=== PATIENT | female | born 1940 | race Caucasian/White ===

== ENCOUNTER 2016-08-24 17:16 | Outpatient (CLI) | payer OTHER | END 2016-08-24 20:44 | disposition home or self-care (01) | LOC: SRD 17:16 | PROVIDERS: ATTEND Family Medicine | DX: R05 Cough (principal); M47.892 Other spondylosis, cervical region; M41.82 Other forms of scoliosis, cervical region | CPT/HCPCS: 71020-TC ==

== ENCOUNTER 2017-06-25 09:57 | Emergency (ER) | payer OTHER ==
[~2017-06-25] VITALS: Ht 162.6 cm; Wt 65.8 kg
[2017-06-25 10:00] VITALS: BP_SYST 162
[2017-06-25] MEDS ORDERED: fentaNYL CITRATE/PF 100 MCG/2 ML AMP IVP ONE (10:15)
[2017-06-25] MEDS ORDERED: IPRATROPIUM BROM 0.5 MG/2.5 ML VIAL.NEB (ATROVENT) IH ONE ×2 (10:15)
[2017-06-25] MEDS ORDERED: CLOPIDOGREL BISULFATE 75 MG TABLET PO ONE (10:15)
[2017-06-25] MEDS ORDERED: ALBUTEROL SULFATE 0.083% 2.5 MG/3 ML VIAL.NEB IH ONE ×2 (10:15)
[2017-06-25] MEDS ORDERED: methylPREDNISolone SOD SUCC/PF 62.5 MG/ML VIAL IVP ONE (10:15)
[2017-06-25 10:30] VITALS: BP_SYST 139
[2017-06-25 10:38] LABS: BASOPHILS % (AUTO) 0.3 % (0.0-2.0); HEMATOCRIT 36.7 % (36-48); HEMOGLOBIN 12.4 g/dL (12.0-16.0); LYMPHOCYTES # (AUTO) 0.3 K/uL (1.0-5.5); LYMPHOCYTES % (AUTO) 8.6 % (20.5-51.5); MEAN CORPUSCULAR HEMOGLOBIN 32 pg (27-31); MEAN CORPUSCULAR HGB CONC 34 % (32-36); MEAN CORPUSCULAR VOLUME 94 fL (79.0-98.0); MONOCYTES # (AUTO) 0.1 K/uL (0.0-1.0); MONOCYTES % (AUTO) 1.8 % (1.7-9.3); NEUTROPHILS # (AUTO) 3.1 K/uL (1.8-7.7); NEUTROPHILS % (AUTO) 89.3 % (40.0-70.0); PLATELET COUNT (AUTO) 272 K/uL (130-430); RED BLOOD CELL COUNT(AUTO) 3.92 MIL/uL (4.2-6.2); RED CELL DISTRIBUTION WIDTH 14.9 % (9.0-15.0); WHITE BLOOD COUNT (AUTO) 3.5 K/uL (4.8-10.8)
[2017-06-25 10:42] LABS: ANION GAP 12 (5-15); CALCIUM 9.4 mg/dL (8.4-11.0); CHLORIDE 101 mmol/L (98-107); CREATININE 0.97 mg/dL (0.55-1.30); GLUCOSE 123 mg/dL (70-99); POTASSIUM 3.6 mmol/L (3.5-5.1); SODIUM SERUM 136 mmol/L (136-145); UREA NITROGEN, BLOOD 20 mg/dL (8-21)
[2017-06-25 10:43] LABS: PROTHROMBIN TIME 9.7 SECS (9.5-12.5)
[2017-06-25 10:56] LABS: ALANINE AMINOTRANSFERASE 23 U/L (12-78); ALBUMIN 2.9 g/dL (3.4-4.8); AMYLASE 14 U/L (0-100); ASPARTATE AMINOTRANSFERASE 41 U/L (10-37); LIPASE 50 U/L (73-393); TOTAL BILIRUBIN 0.5 mg/dL (0.0-1.0)
== END 2017-06-25 10:30 | disposition short-term general hospital (02) ==
LOC: SED 09:57
DX: J44.1 Chronic obstructive pulmonary disease with (acute) exacerbation (principal); I11.0 Hypertensive heart disease with heart failure; I50.9 Heart failure, unspecified; I25.10 Atherosclerotic heart disease of native coronary artery without angina pectoris; I48.91 Unspecified atrial fibrillation; Z88.6 Allergy status to analgesic agent; M19.90 Unspecified osteoarthritis, unspecified site; Z88.0 Allergy status to penicillin
CPT/HCPCS: 36415; 71045; 80053; 82150; 82550; 83605; 83690; 83880; 84484; 85025; 85610; 85730; 87040; 93005; 96374; 96375; 99285; J2930; J3010; 94640

== ENCOUNTER 2017-11-14 09:53 | Inpatient (IN) | payer OTHER ==
[~2017-11-14] VITALS: Ht 157.5 cm; Wt 58.1 kg
[2017-11-14 10:13] VITALS: BP_SYST 104
[2017-11-14] MEDS ORDERED: NACL 0.9% 1,000 ML IV ONE (10:15)
[2017-11-14 10:37] LABS: BASOPHILS % (AUTO) 0.9 % (0.0-2.0); EOSINOPHILS # (AUTO) 0.1 K/uL (0.0-0.4); LYMPHOCYTES # (AUTO) 0.8 K/uL (1.0-5.5); LYMPHOCYTES % (AUTO) 20.3 % (20.5-51.5); MEAN CORPUSCULAR HEMOGLOBIN 31 pg (27-31); MEAN CORPUSCULAR HGB CONC 32 % (32-36); MEAN CORPUSCULAR VOLUME 96 fL (79.0-98.0); MONOCYTES # (AUTO) 0.3 K/uL (0.0-1.0); MONOCYTES % (AUTO) 8.4 % (1.7-9.3); NEUTROPHILS # (AUTO) 2.7 K/uL (1.8-7.7); NEUTROPHILS % (AUTO) 67.4 % (40.0-70.0); PLATELET COUNT (AUTO) 385 K/uL (130-430); RED BLOOD CELL COUNT(AUTO) 2.15 MIL/uL (4.2-6.2); RED CELL DISTRIBUTION WIDTH 15.6 % (9.0-15.0); WHITE BLOOD COUNT (AUTO) 3.9 K/uL (4.8-10.8)
[2017-11-14 10:45] LABS: HEMATOCRIT 20.7 % (36-48); HEMOGLOBIN 6.7 g/dL (12.0-16.0)
[2017-11-14 10:54] LABS: PROTHROMBIN TIME 9.8 SECS (9.5-12.5)
[2017-11-14 11:53] LABS: BILIRUBIN,URINE NEGATIVE (NEGATIVE); BLOOD, URINE NEGATIVE (NEGATIVE); CLARITY/URINE HAZY (CLEAR); COLOR,URINE YELLOW (YELLOW); GLUCOSE,URINE NEGATIVE (NEGATIVE); KETONES,URINE NEGATIVE (NEGATIVE); LEUKOCYTE ESTERASE ,URINE 1+ (NEGATIVE); NITRITE, URINE POSITIVE (NEGATIVE); PH,URINE 7.5 (5.0-8.0); PROTEIN URINE NEGATIVE (NEGATIVE); UROBILINOGEN,URINE 0.2 (0.2-1.0)
[2017-11-14] MEDS ORDERED: PANTOPRAZOLE SODIUM 40 MG/VIAL (PROTONIX) IVP ONE (12:00)
[2017-11-14 12:13] LABS: BACTERIA,URINE MANY /HPF (None Seen); RBC,URINE 0-3 /HPF (0-3)
[2017-11-14 12:16] LABS: MUCUS,URINE None Seen /LPF (None Seen)
[2017-11-14 12:19] VITALS: BP_SYST 122
[2017-11-14] MEDS: D5NS 1,000 ML IV SCH ×2 (13:01→22:30)
[2017-11-14 13:27] LABS: ANION GAP 8 (5-15); CALCIUM 8.5 mg/dL (8.4-11.0); CHLORIDE 107 mmol/L (98-107); CREATININE 0.89 mg/dL (0.55-1.30); GLUCOSE 130 mg/dL (70-99); POTASSIUM 4.1 mmol/L (3.5-5.1); SODIUM SERUM 141 mmol/L (136-145); UREA NITROGEN, BLOOD 17 mg/dL (8-21)
[2017-11-14 13:36] LABS: ALANINE AMINOTRANSFERASE 20 U/L (12-78); ALBUMIN 3.2 g/dL (3.4-4.8); ASPARTATE AMINOTRANSFERASE 23 U/L (10-37); TOTAL BILIRUBIN 0.2 mg/dL (0.0-1.0)
[2017-11-14] MEDS ORDERED: MELA3TAB37 PO (15:54)
[2017-11-14] MEDS ORDERED: METH750T3 PO (15:54)
[2017-11-14] MEDS ORDERED: BENZ100C67 PO (15:54)
[2017-11-14] MEDS ORDERED: TRAM50TA92 PO (15:54)
[2017-11-14] MEDS ORDERED: [UNRECOGNIZED DRUG - CODE] PO (15:54)
[2017-11-14] MEDS ORDERED: FURO-150 PO (15:54)
[2017-11-14] MEDS ORDERED: RIZA10TA22 (15:54)
[2017-11-14] MEDS ORDERED: POTA-118 PO (15:54)
[2017-11-14] MEDS ORDERED: MIRT15TA7 PO (15:54)
[2017-11-14] MEDS ORDERED: LISI-209 PO (15:54)
[2017-11-14] MEDS ORDERED: MIRT30TA7 PO (15:54)
[2017-11-14] MEDS ORDERED: PRO20 PO (15:54)
[2017-11-14] MEDS ORDERED: OMEP40CA33 PO (15:54)
[2017-11-14] MEDS ORDERED: ALPR2TAB2 PO (15:54)
[2017-11-14 16:00] VITALS: BP_SYST 122
[2017-11-14] MEDS ORDERED: ALPRAZolam 0.25 MG TABLET PO ONE (19:45)
[2017-11-14 20:05] VITALS: BP_SYST 115
[2017-11-14] MEDS: PANTOPRAZOLE SODIUM 40 MG/VIAL (PROTONIX) IVP SCH (20:24)
[2017-11-14 21:10] LABS: HEMATOCRIT 24.7 % (36-48); HEMOGLOBIN 8.1 g/dL (12.0-16.0)
[2017-11-14] MEDS: ACETAMINOPHEN 325 MG TABLET PO PRN (22:31)
[2017-11-15] VITALS (22 sets, daily range): BP systolic 98–130
[2017-11-15] MEDS ORDERED: ZOLPIDEM TARTRATE 5 MG TABLET ONE (00:05)
[2017-11-15 07:17] LABS: HEMOGLOBIN 9.9 g/dL (12.0-16.0)
[2017-11-15] MEDS: ONDANSETRON HCL 4 MG/2 ML VIAL IVP PRN ×2 (08:45→20:58)
[2017-11-15] MEDS: PANTOPRAZOLE SODIUM 40 MG/VIAL (PROTONIX) IVP SCH ×2 (08:45→21:06)
[2017-11-15] MEDS: D5NS 1,000 ML IV SCH (08:47)
[2017-11-15 11:23] LABS: BASOPHILS # (AUTO) 0.2 K/uL (0.0-0.2); BASOPHILS % (AUTO) 1.9 % (0.0-2.0); EOSINOPHILS # (AUTO) 0.1 K/uL (0.0-0.4); EOSINOPHILS % (AUTO) 0.6 % (0.0-4.0); HEMATOCRIT 27.7 % (36-48); HEMOGLOBIN 8.9 g/dL (12.0-16.0); LYMPHOCYTES # (AUTO) 3.2 K/uL (1.0-5.5); LYMPHOCYTES % (AUTO) 32.7 % (20.5-51.5); MEAN CORPUSCULAR HEMOGLOBIN 30 pg (27-31); MEAN CORPUSCULAR HGB CONC 32 % (32-36); MEAN CORPUSCULAR VOLUME 94 fL (79.0-98.0); MONOCYTES # (AUTO) 0.1 K/uL (0.0-1.0); MONOCYTES % (AUTO) 1.3 % (1.7-9.3); NEUTROPHILS # (AUTO) 6.2 K/uL (1.8-7.7); NEUTROPHILS % (AUTO) 63.5 % (40.0-70.0); PLATELET COUNT (AUTO) 285 K/uL (130-430); RED BLOOD CELL COUNT(AUTO) 2.95 MIL/uL (4.2-6.2); RED CELL DISTRIBUTION WIDTH 15.5 % (9.0-15.0); WHITE BLOOD COUNT (AUTO) 9.8 K/uL (4.8-10.8)
[2017-11-15 11:40] LABS: ANION GAP 15 (5-15); CALCIUM 7.7 mg/dL (8.4-11.0); CHLORIDE 110 mmol/L (98-107); CREATININE 0.99 mg/dL (0.55-1.30); GLUCOSE 276 mg/dL (70-99); SODIUM SERUM 144 mmol/L (136-145); UREA NITROGEN, BLOOD 6 mg/dL (8-21)
[2017-11-15 11:45] LABS: ALANINE AMINOTRANSFERASE 259 U/L (12-78); ALBUMIN 2.6 g/dL (3.4-4.8); ASPARTATE AMINOTRANSFERASE 397 U/L (10-37); TOTAL BILIRUBIN 0.5 mg/dL (0.0-1.0)
[2017-11-15 11:54] LABS: POTASSIUM 2.8 mmol/L (3.5-5.1)
[2017-11-15] MEDS ORDERED: POTASSIUM CHLORIDE 40 MEQ in NS 250 ML IV ONE (12:15)
[2017-11-15] MEDS: LORazepam 2 MG/ML VIAL IVP PRN ×3 (12:50→23:18)
[2017-11-15] MEDS: D5/0.45 NS 1,000 ML IV SCH ×2 (12:55→21:58)
[2017-11-15] MEDS ORDERED: NS 1000 ML BAG IV ONE (13:00)
[2017-11-15] MEDS ORDERED: SODIUM BICARBONATE 8.4% JECT 50 MEQ/50 ML SYRINGE IVP ONE (13:00)
[2017-11-15] MEDS ORDERED: MAGNESIUM SULFATE 1 GM/2 ML VIAL IV ONE (13:00)
[2017-11-15] MEDS ORDERED: CALCIUM CHLORIDE 1 GM/10 ML DISP.SYRIN (14 mEq Ca++/SYR) IV ONE (13:00)
[2017-11-15] MEDS ORDERED: EPINEPHrine JECT 1 MG/10 ML SYR IVP ONE (13:00)
[2017-11-15] MEDS: IPRATROPIUM BROM 0.5 MG/2.5 ML VIAL.NEB (ATROVENT) INH SCH ×4 (14:15→23:20)
[2017-11-15] MEDS ORDERED: ALBUTEROL SULFATE 0.083% 2.5 MG/3 ML VIAL.NEB INH PRN (14:15)
[2017-11-15] MEDS: ALBUTEROL SULFATE 0.083% 2.5 MG/3 ML VIAL.NEB INH SCH ×3 (15:49→23:20)
[2017-11-15] MEDS ORDERED: SIMETHICONE 40 MG/0.6 ML ML ONE (15:50)
[2017-11-15] MEDS: MEPERIDINE HCL/PF 100 MG/ML AMP ONE ×3 (17:30→17:37)
[2017-11-15] MEDS: MIDAZOLAM HCL 5 MG/5 ML VIAL ONE ×6 (17:30→17:43)
[2017-11-15 17:40] LABS: HEMATOCRIT 28.1 % (36-48); HEMOGLOBIN 9.4 g/dL (12.0-16.0)
[2017-11-15 18:27] LABS: ANION GAP 9 (5-15); CHLORIDE 110 mmol/L (98-107); CREATININE 0.89 mg/dL (0.55-1.30); GLUCOSE 181 mg/dL (70-99); POTASSIUM 3.6 mmol/L (3.5-5.1); SODIUM SERUM 144 mmol/L (136-145); UREA NITROGEN, BLOOD 7 mg/dL (8-21)
[2017-11-15] MEDS ORDERED: ZOLPIDEM TARTRATE 5 MG TABLET PO PRN (21:00)
[2017-11-15 23:19] LABS: HEMATOCRIT 26.4 % (36-48); HEMOGLOBIN 8.9 g/dL (12.0-16.0)
[2017-11-16] VITALS (29 sets, daily range): BP systolic 94–136
[2017-11-16] MEDS: ALBUTEROL SULFATE 0.083% 2.5 MG/3 ML VIAL.NEB INH SCH ×2 (02:05→07:44)
[2017-11-16] MEDS: IPRATROPIUM BROM 0.5 MG/2.5 ML VIAL.NEB (ATROVENT) INH SCH ×6 (02:05→23:00)
[2017-11-16] MEDS: LORazepam 2 MG/ML VIAL IVP PRN ×2 (02:23→07:56)
[2017-11-16 06:05] LABS: BASOPHILS % (AUTO) 0.4 % (0.0-2.0); EOSINOPHILS % (AUTO) 0.2 % (0.0-4.0); HEMATOCRIT 25.5 % (36-48); HEMOGLOBIN 8.5 g/dL (12.0-16.0); LYMPHOCYTES # (AUTO) 1.5 K/uL (1.0-5.5); LYMPHOCYTES % (AUTO) 12.8 % (20.5-51.5); MEAN CORPUSCULAR HEMOGLOBIN 32 pg (27-31); MEAN CORPUSCULAR HGB CONC 33 % (32-36); MEAN CORPUSCULAR VOLUME 95 fL (79.0-98.0); MONOCYTES # (AUTO) 1.1 K/uL (0.0-1.0); MONOCYTES % (AUTO) 9.4 % (1.7-9.3); NEUTROPHILS # (AUTO) 9.2 K/uL (1.8-7.7); NEUTROPHILS % (AUTO) 77.2 % (40.0-70.0); PLATELET COUNT (AUTO) 288 K/uL (130-430); RED BLOOD CELL COUNT(AUTO) 2.69 MIL/uL (4.2-6.2); RED CELL DISTRIBUTION WIDTH 14.8 % (9.0-15.0); WHITE BLOOD COUNT (AUTO) 11.8 K/uL (4.8-10.8)
[2017-11-16 06:34] LABS: ALANINE AMINOTRANSFERASE 232 U/L (12-78); ALBUMIN 2.8 g/dL (3.4-4.8); ANION GAP 6 (5-15); ASPARTATE AMINOTRANSFERASE 226 U/L (10-37); CALCIUM 7.7 mg/dL (8.4-11.0); CHLORIDE 109 mmol/L (98-107); CREATININE 0.75 mg/dL (0.55-1.30); GLUCOSE 139 mg/dL (70-99); POTASSIUM 3.3 mmol/L (3.5-5.1); SODIUM SERUM 140 mmol/L (136-145); TOTAL BILIRUBIN 0.5 mg/dL (0.0-1.0); UREA NITROGEN, BLOOD 8 mg/dL (8-21)
[2017-11-16] MEDS: D5/0.45 NS 1,000 ML IV SCH ×2 (09:40→19:43)
[2017-11-16] MEDS: PANTOPRAZOLE SODIUM 40 MG/VIAL (PROTONIX) IVP SCH ×2 (09:43→20:52)
[2017-11-16] MEDS: ACETAMINOPHEN 325 MG TABLET PO PRN ×3 (09:44→20:01)
[2017-11-16] MEDS ORDERED: MORPHINE 4 MG/ML INJ. SYRINGE IVP PRN (10:00)
[2017-11-16] MEDS ORDERED: MORPHINE 2 MG/ML INJ. SYRINGE IVP PRN (10:00)
[2017-11-16] MEDS ORDERED: POTASSIUM CHLORIDE 40 MEQ in NS 250 ML IV ONE (12:30)
[2017-11-16] MEDS ORDERED: cefTRIAXone 1 GM in D5W 50 ML IV ONE (15:45)
[2017-11-16 16:03] LABS: HEMATOCRIT 23.4 % (36-48); HEMOGLOBIN 7.7 g/dL (12.0-16.0)
[2017-11-16] MEDS: HYDROmorphone 1 MG INJ. 1 MG/ML AMPUL IVP PRN (19:47)
[2017-11-16] MEDS: LevALBUTEROL HCL 1.25 MG/0.5 ML *CONC.* VIAL.NEB (XOPENEX CONC.) INH SCH (20:14)
[2017-11-16] MEDS: ONDANSETRON HCL 4 MG/2 ML VIAL IVP PRN (20:52)
[2017-11-16] MEDS: ALPRAZolam 0.25 MG TABLET PO PRN (23:14)
[2017-11-16 23:43] LABS: HEMATOCRIT 23.8 % (36-48)
[2017-11-17] VITALS (20 sets, daily range): BP systolic 95–126
[2017-11-17] MEDS: LevALBUTEROL HCL 1.25 MG/0.5 ML *CONC.* VIAL.NEB (XOPENEX CONC.) INH SCH ×5 (01:00→19:00)
[2017-11-17] MEDS: HYDROmorphone 1 MG INJ. 1 MG/ML AMPUL IVP PRN ×5 (01:13→22:27)
[2017-11-17] MEDS: IPRATROPIUM BROM 0.5 MG/2.5 ML VIAL.NEB (ATROVENT) INH SCH (03:00)
[2017-11-17 06:25] LABS: BASOPHILS # (AUTO) 0.1 K/uL (0.0-0.2); BASOPHILS % (AUTO) 0.5 % (0.0-2.0); EOSINOPHILS # (AUTO) 0.1 K/uL (0.0-0.4); HEMATOCRIT 22.5 % (36-48); HEMOGLOBIN 7.5 g/dL (12.0-16.0); LYMPHOCYTES # (AUTO) 1.6 K/uL (1.0-5.5); LYMPHOCYTES % (AUTO) 14.3 % (20.5-51.5); MEAN CORPUSCULAR HEMOGLOBIN 32 pg (27-31); MEAN CORPUSCULAR HGB CONC 34 % (32-36); MEAN CORPUSCULAR VOLUME 95 fL (79.0-98.0); MONOCYTES # (AUTO) 0.9 K/uL (0.0-1.0); NEUTROPHILS # (AUTO) 8.3 K/uL (1.8-7.7); NEUTROPHILS % (AUTO) 76.2 % (40.0-70.0); PLATELET COUNT (AUTO) 256 K/uL (130-430); RED BLOOD CELL COUNT(AUTO) 2.38 MIL/uL (4.2-6.2); RED CELL DISTRIBUTION WIDTH 14.9 % (9.0-15.0)
[2017-11-17 07:01] LABS: ALANINE AMINOTRANSFERASE 163 U/L (12-78); ALBUMIN 2.5 g/dL (3.4-4.8); ANION GAP 8 (5-15); ASPARTATE AMINOTRANSFERASE 110 U/L (10-37); CALCIUM 7.6 mg/dL (8.4-11.0); CHLORIDE 109 mmol/L (98-107); CREATININE 0.55 mg/dL (0.55-1.30); GLUCOSE 122 mg/dL (70-99); POTASSIUM 3.9 mmol/L (3.5-5.1); SODIUM SERUM 143 mmol/L (136-145); TOTAL BILIRUBIN 0.4 mg/dL (0.0-1.0); UREA NITROGEN, BLOOD 8 mg/dL (8-21)
[2017-11-17] MEDS: ONDANSETRON HCL 4 MG/2 ML VIAL IVP PRN ×4 (07:39→23:35)
[2017-11-17] MEDS: cefTRIAXone 1 GM in D5W 50 ML IV SCH (09:40)
[2017-11-17] MEDS: PANTOPRAZOLE SODIUM 40 MG/VIAL (PROTONIX) IVP SCH ×2 (09:40→20:57)
[2017-11-17 14:35] LABS: HEMATOCRIT 23.9 % (36-48); HEMOGLOBIN 7.8 g/dL (12.0-16.0)
[2017-11-17] MEDS: D5/0.45 NS 1,000 ML IV SCH (16:36)
[2017-11-18] VITALS (7 sets, daily range): BP systolic 121–135
[2017-11-18] MEDS: ALPRAZolam 0.25 MG TABLET PO PRN ×2 (00:07→08:07)
[2017-11-18] MEDS: LevALBUTEROL HCL 1.25 MG/0.5 ML *CONC.* VIAL.NEB (XOPENEX CONC.) INH SCH ×4 (01:00→19:00)
[2017-11-18] MEDS ORDERED: ALPRAZolam 0.25 MG TABLET PO ONE ×2 (03:45→14:45)
[2017-11-18] MEDS: HYDROmorphone 1 MG INJ. 1 MG/ML AMPUL IVP PRN ×2 (04:24→22:23)
[2017-11-18 06:44] LABS: BASOPHILS # (AUTO) 0.1 K/uL (0.0-0.2); BASOPHILS % (AUTO) 0.6 % (0.0-2.0); EOSINOPHILS # (AUTO) 0.2 K/uL (0.0-0.4); EOSINOPHILS % (AUTO) 1.9 % (0.0-4.0); HEMOGLOBIN 7.5 g/dL (12.0-16.0); LYMPHOCYTES % (AUTO) 10.8 % (20.5-51.5); MEAN CORPUSCULAR HEMOGLOBIN 31 pg (27-31); MEAN CORPUSCULAR HGB CONC 33 % (32-36); MEAN CORPUSCULAR VOLUME 94 fL (79.0-98.0); MONOCYTES # (AUTO) 0.8 K/uL (0.0-1.0); MONOCYTES % (AUTO) 8.6 % (1.7-9.3); NEUTROPHILS # (AUTO) 7.1 K/uL (1.8-7.7); NEUTROPHILS % (AUTO) 78.1 % (40.0-70.0); PLATELET COUNT (AUTO) 261 K/uL (130-430); RED BLOOD CELL COUNT(AUTO) 2.44 MIL/uL (4.2-6.2); WHITE BLOOD COUNT (AUTO) 9.2 K/uL (4.8-10.8)
[2017-11-18 07:10] LABS: ALANINE AMINOTRANSFERASE 113 U/L (12-78); ALBUMIN 2.4 g/dL (3.4-4.8); ANION GAP 6 (5-15); ASPARTATE AMINOTRANSFERASE 49 U/L (10-37); CALCIUM 7.9 mg/dL (8.4-11.0); CHLORIDE 109 mmol/L (98-107); CREATININE 0.57 mg/dL (0.55-1.30); GLUCOSE 129 mg/dL (70-99); POTASSIUM 3.6 mmol/L (3.5-5.1); SODIUM SERUM 142 mmol/L (136-145); TOTAL BILIRUBIN 0.3 mg/dL (0.0-1.0); UREA NITROGEN, BLOOD 6 mg/dL (8-21)
[2017-11-18] MEDS: IPRATROPIUM BROM 0.5 MG/2.5 ML VIAL.NEB (ATROVENT) INH SCH ×4 (07:39→19:00)
[2017-11-18] MEDS: ONDANSETRON HCL 4 MG/2 ML VIAL IVP PRN ×2 (08:07→15:31)
[2017-11-18] MEDS: PANTOPRAZOLE SODIUM 40 MG/VIAL (PROTONIX) IVP SCH ×2 (08:07→21:26)
[2017-11-18] MEDS: cefTRIAXone 1 GM in D5W 50 ML IV SCH (08:08)
[2017-11-18] MEDS: D5/0.45 NS 1,000 ML IV SCH (08:20)
[2017-11-18] MEDS ORDERED: FERROUS SULFATE 325 MG TABLET.DR PO ONE (10:30)
[2017-11-18] MEDS ORDERED: DOCUSATE SODIUM 100 MG CAPSULE PO PRN (10:30)
[2017-11-18] MEDS ORDERED: MILK OF MAGNESIA 30 ML UDC PO ONE (10:30)
[2017-11-18] MEDS: IPRATROPIUM BROM 0.5 MG/2.5 ML VIAL.NEB (ATROVENT) INH PRN (13:21)
[2017-11-18] MEDS ORDERED: ALPRAZolam 0.25 MG TABLET PO PRN (14:45)
[2017-11-18] MEDS: MIRTAZAPINE 15 MG TABLET PO SCH (21:22)
[2017-11-18] MEDS: FERROUS SULFATE 325 MG TABLET.DR PO SCH (21:27)
[2017-11-18] MEDS: ALPRAZolam 0.25 MG TABLET PO SCH (21:28)
[2017-11-19] VITALS: BP_SYST 113; BP_SYST 146
[2017-11-19] MEDS: LevALBUTEROL HCL 1.25 MG/0.5 ML *CONC.* VIAL.NEB (XOPENEX CONC.) INH SCH ×4 (01:07→19:48)
[2017-11-19] MEDS: IPRATROPIUM BROM 0.5 MG/2.5 ML VIAL.NEB (ATROVENT) INH PRN ×2 (01:08→13:17)
[2017-11-19] MEDS: HYDROmorphone 1 MG INJ. 1 MG/ML AMPUL IVP PRN ×3 (02:59→20:09)
[2017-11-19] MEDS: D5/0.45 NS 1,000 ML IV SCH (05:58)
[2017-11-19 06:11] LABS: BASOPHILS # (AUTO) 0.1 K/uL (0.0-0.2); BASOPHILS % (AUTO) 0.9 % (0.0-2.0); EOSINOPHILS # (AUTO) 0.4 K/uL (0.0-0.4); EOSINOPHILS % (AUTO) 4.7 % (0.0-4.0); HEMATOCRIT 29.1 % (36-48); HEMOGLOBIN 9.6 g/dL (12.0-16.0); LYMPHOCYTES # (AUTO) 1.6 K/uL (1.0-5.5); MEAN CORPUSCULAR HEMOGLOBIN 31 pg (27-31); MEAN CORPUSCULAR HGB CONC 33 % (32-36); MEAN CORPUSCULAR VOLUME 93 fL (79.0-98.0); MONOCYTES # (AUTO) 0.9 K/uL (0.0-1.0); NEUTROPHILS # (AUTO) 5.6 K/uL (1.8-7.7); NEUTROPHILS % (AUTO) 65.4 % (40.0-70.0); PLATELET COUNT (AUTO) 283 K/uL (130-430); RED BLOOD CELL COUNT(AUTO) 3.14 MIL/uL (4.2-6.2); RED CELL DISTRIBUTION WIDTH 14.9 % (9.0-15.0); WHITE BLOOD COUNT (AUTO) 8.6 K/uL (4.8-10.8)
[2017-11-19 06:38] LABS: ANION GAP 6 (5-15); CALCIUM 7.8 mg/dL (8.4-11.0); CHLORIDE 107 mmol/L (98-107); CREATININE 0.56 mg/dL (0.55-1.30); GLUCOSE 118 mg/dL (70-99); POTASSIUM 3.1 mmol/L (3.5-5.1); SODIUM SERUM 141 mmol/L (136-145); UREA NITROGEN, BLOOD 7 mg/dL (8-21)
[2017-11-19 06:50] LABS: ALANINE AMINOTRANSFERASE 78 U/L (12-78); ALBUMIN 2.3 g/dL (3.4-4.8); ASPARTATE AMINOTRANSFERASE 29 U/L (10-37); LIPASE 106 U/L (73-393); TOTAL BILIRUBIN 0.4 mg/dL (0.0-1.0)
[2017-11-19] MEDS: IPRATROPIUM BROM 0.5 MG/2.5 ML VIAL.NEB (ATROVENT) INH SCH ×4 (07:25→19:49)
[2017-11-19 08:22] VITALS: BP_SYST 123
[2017-11-19] MEDS: ACETAMINOPHEN 325 MG TABLET PO PRN (09:10)
[2017-11-19] MEDS: FERROUS SULFATE 325 MG TABLET.DR PO SCH ×2 (09:10→21:58)
[2017-11-19] MEDS: PANTOPRAZOLE SODIUM 40 MG/VIAL (PROTONIX) IVP SCH ×2 (09:10→21:58)
[2017-11-19] MEDS: ALPRAZolam 0.25 MG TABLET PO SCH ×2 (09:11→21:58)
[2017-11-19] MEDS: cefTRIAXone 1 GM in D5W 50 ML IV SCH (09:14)
[2017-11-19] MEDS ORDERED: POTASSIUM CHLORIDE 20 MEQ TAB.PRT.SR PO ONE (09:45)
[2017-11-19 11:51] VITALS: BP_SYST 132
[2017-11-19 16:01] VITALS: BP_SYST 139
[2017-11-19 20:06] VITALS: BP_SYST 140
[2017-11-19] MEDS: MIRTAZAPINE 15 MG TABLET PO SCH (21:58)
[2017-11-20] VITALS: BP_SYST 150
[2017-11-20] MEDS: LevALBUTEROL HCL 1.25 MG/0.5 ML *CONC.* VIAL.NEB (XOPENEX CONC.) INH SCH (01:05)
[2017-11-20] MEDS: D5/0.45 NS 1,000 ML IV SCH (03:26)
[2017-11-20] MEDS: HYDROmorphone 1 MG INJ. 1 MG/ML AMPUL IVP PRN (04:09)
[2017-11-20 05:29] VITALS: BP_SYST 138
[2017-11-20 07:06] LABS: BASOPHILS # (AUTO) 0.1 K/uL (0.0-0.2); BASOPHILS % (AUTO) 1.7 % (0.0-2.0); EOSINOPHILS # (AUTO) 0.5 K/uL (0.0-0.4); EOSINOPHILS % (AUTO) 6.1 % (0.0-4.0); HEMATOCRIT 28.8 % (36-48); HEMOGLOBIN 9.4 g/dL (12.0-16.0); LYMPHOCYTES # (AUTO) 1.1 K/uL (1.0-5.5); LYMPHOCYTES % (AUTO) 13.9 % (20.5-51.5); MEAN CORPUSCULAR HEMOGLOBIN 30 pg (27-31); MEAN CORPUSCULAR HGB CONC 33 % (32-36); MEAN CORPUSCULAR VOLUME 92 fL (79.0-98.0); MONOCYTES # (AUTO) 0.6 K/uL (0.0-1.0); MONOCYTES % (AUTO) 7.8 % (1.7-9.3); NEUTROPHILS # (AUTO) 5.8 K/uL (1.8-7.7); NEUTROPHILS % (AUTO) 70.5 % (40.0-70.0); PLATELET COUNT (AUTO) 322 K/uL (130-430); RED BLOOD CELL COUNT(AUTO) 3.12 MIL/uL (4.2-6.2); WHITE BLOOD COUNT (AUTO) 8.1 K/uL (4.8-10.8)
[2017-11-20 07:26] LABS: ANION GAP 3 (5-15); CALCIUM 8.1 mg/dL (8.4-11.0); CHLORIDE 104 mmol/L (98-107); CREATININE 0.45 mg/dL (0.55-1.30); GLUCOSE 119 mg/dL (70-99); POTASSIUM 3.3 mmol/L (3.5-5.1); SODIUM SERUM 138 mmol/L (136-145); UREA NITROGEN, BLOOD 5 mg/dL (8-21)
== END 2017-11-20 06:37 | disposition short-term general hospital (02) | DRG 208 ==
LOC: SED 09:53 → STU 11:46 → SIC 11-15 11:02 → STU 11-17 18:05
PROVIDERS: ADMIT Internal Medicine Hospice and Palliative Medicine; ATTEND Internal Medicine Hospice and Palliative Medicine
PROC: 5A12012 Performance of Cardiac Output, Single, Manual (ICD-10-PCS; 2017-11-15)
PROC: 5A1945Z Respiratory Ventilation, 24-96 Consecutive Hours (ICD-10-PCS; 2017-11-15)
PROC: 0BH17EZ Insertion of Endotracheal Airway into Trachea, Via Natural or Artificial Opening (ICD-10-PCS; 2017-11-15)
PROC: 0DB68ZX Excision of Stomach, Via Natural or Artificial Opening Endoscopic, Diagnostic (ICD-10-PCS; principal; 2017-11-15 17:15)
DX: J96.00 Acute respiratory failure, unspecified whether with hypoxia or hypercapnia (principal); K25.4 Chronic or unspecified gastric ulcer with hemorrhage; I46.9 Cardiac arrest, cause unspecified; K29.71 Gastritis, unspecified, with bleeding; N39.0 Urinary tract infection, site not specified; J84.9 Interstitial pulmonary disease, unspecified; I42.9 Cardiomyopathy, unspecified; I11.0 Hypertensive heart disease with heart failure; D50.0 Iron deficiency anemia secondary to blood loss (chronic); E87.6 Hypokalemia; B96.1 Klebsiella pneumoniae [K. pneumoniae] as the cause of diseases classified elsewhere; K59.00 Constipation, unspecified; I44.7 Left bundle-branch block, unspecified; I50.9 Heart failure, unspecified; M19.90 Unspecified osteoarthritis, unspecified site; S29.9XXA Unspecified injury of thorax, initial encounter; X58.XXXA Exposure to other specified factors, initial encounter; Y93.89 Activity, other specified; Y92.89 Other specified places as the place of occurrence of the external cause; Y99.8 Other external cause status; Z90.710 Acquired absence of both cervix and uterus; Z98.84 Bariatric surgery status; Z80.52 Family history of malignant neoplasm of bladder
CPT/HCPCS: 36415; 36600; 43239; 71045; 80048; 80053; 81000-TC; 82803-TC; 82962; 83690-TC; 83735-TC; 84484; 85018-TC; 85025; 85610-TC; 85730-TC; 86886; 86900; 86901; 86920; 87070-TC; 87081; 87086; 87186-TC; 87205-TC; 88305; 88312; 88313; 93005; 93306; 94002; 94003; 94640; 94760; 96360; 99285; C9113; J0171; J0696; J1170; J2060; J2175; J2250; J2405; J3475; J3480; J7030; J7040; J7042; J7050; J7060; J7612; J7613; P9021

== ENCOUNTER 2018-10-22 23:05 | Inpatient (IN) | payer OTHER ==
[~2018-10-22] VITALS: Ht 157.5 cm; Wt 55.2 kg
[2018-10-22 23:05] VITALS: BP_SYST 116
[~2018-10-22 23:05] MED LIST: ALPR2TAB2 PO; BENZ-16 PO; FURO-150 PO; LISI-209 PO; MELA3TAB PO; METH750T3 PO; MIRT15TA7 PO; MIRT30TA7 PO; OMEP40CA33 PO; POTA10TA15 PO; PRO20 PO; RIZA10TA22; TRAM50TA92 PO; [UNRECOGNIZED DRUG - CODE] PO
[2018-10-22 23:37] LABS: BASOPHILS # (AUTO) 0.1 K/uL (0.0-0.2); BASOPHILS % (AUTO) 0.4 % (0.0-2.0); EOSINOPHILS % (AUTO) 0.2 % (0.0-4.0); HEMATOCRIT 22.1 % (36-48); HEMOGLOBIN 7.1 g/dL (12.0-16.0); LYMPHOCYTES # (AUTO) 0.8 K/uL (1.0-5.5); LYMPHOCYTES % (AUTO) 6.2 % (20.5-51.5); MEAN CORPUSCULAR HEMOGLOBIN 30 pg (27-31); MEAN CORPUSCULAR HGB CONC 32 % (32-36); MEAN CORPUSCULAR VOLUME 93 fL (79.0-98.0); MONOCYTES # (AUTO) 0.7 K/uL (0.0-1.0); MONOCYTES % (AUTO) 5.1 % (1.7-9.3); NEUTROPHILS # (AUTO) 11.9 K/uL (1.8-7.7); NEUTROPHILS % (AUTO) 88.1 % (40.0-70.0); PLATELET COUNT (AUTO) 240 K/uL (130-430); RED BLOOD CELL COUNT(AUTO) 2.38 MIL/uL (4.2-6.2); RED CELL DISTRIBUTION WIDTH 14.9 % (9.0-15.0); WHITE BLOOD COUNT (AUTO) 13.5 K/uL (4.8-10.8)
[2018-10-22] MEDS ORDERED: NACL 0.9% 1,000 ML IV ONE (23:45)
[2018-10-22 23:51] LABS: ANION GAP 10 (5-15); CALCIUM 9.3 mg/dL (8.4-11.0); CHLORIDE 103 mmol/L (98-107); CREATININE 0.88 mg/dL (0.55-1.30); GLUCOSE 147 mg/dL (70-99); POTASSIUM 4.7 mmol/L (3.5-5.1); SODIUM SERUM 138 mmol/L (136-145); UREA NITROGEN, BLOOD 36 mg/dL (8-21)
[2018-10-23 00:04] LABS: ALANINE AMINOTRANSFERASE 17 U/L (12-78); ALBUMIN 3.2 g/dL (3.4-4.8); ASPARTATE AMINOTRANSFERASE 58 U/L (10-37); TOTAL BILIRUBIN 0.4 mg/dL (0.0-1.0)
[2018-10-23 00:30] LABS: BILIRUBIN,URINE NEGATIVE (NEGATIVE); BLOOD, URINE NEGATIVE (NEGATIVE); CLARITY/URINE SL HAZY (CLEAR); COLOR,URINE YELLOW (YELLOW); GLUCOSE,URINE NEGATIVE (NEGATIVE); KETONES,URINE TRACE (NEGATIVE); LEUKOCYTE ESTERASE ,URINE 1+ (NEGATIVE); NITRITE, URINE NEGATIVE (NEGATIVE); PH,URINE 5.5 (5.0-8.0); PROTEIN URINE NEGATIVE (NEGATIVE); UROBILINOGEN,URINE 0.2 (0.2-1.0)
[2018-10-23 00:46] LABS: BACTERIA,URINE MANY /HPF (None Seen); RBC,URINE 0-3 /HPF (0-3); WBC,URINE 20-50 /HPF (0-3)
[2018-10-23 01:58] VITALS: BP_SYST 139
[2018-10-23] MEDS: traMADol HCL HCL 50 MG TABLET (ULTRAM) PO PRN ×3 (05:54→22:50)
[2018-10-23 08:10] VITALS: BP_SYST 147
[2018-10-23] MEDS: HYDROmorphone 1 MG INJ. 1 MG/ML AMPUL IVP PRN ×2 (08:48→17:47)
[2018-10-23] MEDS: PANTOPRAZOLE SODIUM 40 MG/VIAL (PROTONIX) IVP SCH ×2 (08:48→20:31)
[2018-10-23] MEDS: ONDANSETRON HCL 4 MG/2 ML VIAL IVP PRN ×2 (08:48→15:34)
[2018-10-23] MEDS ORDERED: OMEPRAZOLE 20 MG CAPSULE.DR (PriLOSEC) PO SCH (10:00)
[2018-10-23] MEDS ORDERED: FLUoxetine HCL 20 MG CAPSULE (PROzac) PO ONE (10:15)
[2018-10-23] MEDS ORDERED: FUROSEMIDE 20 MG TABLET PO ONE (10:15)
[2018-10-23] MEDS ORDERED: LISINOPRIL 5 MG TABLET PO ONE (10:15)
[2018-10-23] MEDS ORDERED: METHOCARBAMOL 500 MG TABLET PO ONE (10:15)
[2018-10-23] MEDS ORDERED: ALPRAZolam 0.25 MG TABLET PO ONE (10:30)
[2018-10-23] MEDS ORDERED: CARBIDOPA/LEVODOPA 25/100 MG TABLET PO ONE (10:45)
[2018-10-23] MEDS: ALPRAZolam 0.25 MG TABLET PO PRN ×2 (12:05→18:35)
[2018-10-23] MEDS: NACL 0.9% 1,000 ML IV SCH ×2 (12:05→14:15)
[2018-10-23 12:31] VITALS: BP_SYST 144
[2018-10-23] MEDS: CARBIDOPA/LEVODOPA 25/100 MG TABLET PO SCH ×2 (14:14→20:32)
[2018-10-23] MEDS: METHOCARBAMOL 500 MG TABLET PO SCH ×2 (14:14→20:31)
[2018-10-23 14:42] LABS: HEMATOCRIT 26.7 % (36-48); HEMOGLOBIN 9.1 g/dL (12.0-16.0)
[2018-10-23 16:58] VITALS: BP_SYST 124
[2018-10-23] MEDS ORDERED: BISACODYL 5 MG TABLET.DR (DULCOLAX) PO ONE (17:00)
[2018-10-23] MEDS: METOCLOPRAMIDE HCL 10 MG/2 ML VIAL IVP PRN (17:46)
[2018-10-23] MEDS ORDERED: GOLYTELY / COLYTE SOLUTION 4 LITERS PO ONE (18:00)
[2018-10-23] MEDS ORDERED: MAGNESIUM CITRATE 300 ML ORAL SOLUTION PO ONE (19:00)
[2018-10-23 20:00] VITALS: BP_SYST 139
[2018-10-23 20:26] LABS: HEMATOCRIT 27.4 % (36-48); HEMOGLOBIN 9.2 g/dL (12.0-16.0)
[2018-10-23] MEDS: MIRTAZAPINE 15 MG TABLET PO SCH (20:32)
[2018-10-23] MEDS ORDERED: MIRTAZAPINE 15 MG TABLET PO SCH (21:00)
[2018-10-23] MEDS ORDERED: ALPRAZolam 0.25 MG TABLET PO SCH (21:00)
[2018-10-24] MEDS: METOCLOPRAMIDE HCL 10 MG/2 ML VIAL IVP PRN ×4 (00:43→17:47)
[2018-10-24] MEDS: HYDROmorphone 1 MG INJ. 1 MG/ML AMPUL IVP PRN ×3 (00:44→21:07)
[2018-10-24] MEDS: NACL 0.9% 1,000 ML IV SCH ×2 (01:18→17:47)
[2018-10-24 02:28] VITALS: BP_SYST 150
[2018-10-24] MEDS ORDERED: HYDROmorphone 1 MG INJ. 1 MG/ML AMPUL ONE (04:35)
[2018-10-24 05:58] LABS: BASOPHILS # (AUTO) 0.1 K/uL (0.0-0.2); BASOPHILS % (AUTO) 0.8 % (0.0-2.0); EOSINOPHILS # (AUTO) 0.1 K/uL (0.0-0.4); EOSINOPHILS % (AUTO) 1.6 % (0.0-4.0); HEMOGLOBIN 9.9 g/dL (12.0-16.0); LYMPHOCYTES % (AUTO) 21.7 % (20.5-51.5); MEAN CORPUSCULAR HEMOGLOBIN 32 pg (27-31); MEAN CORPUSCULAR HGB CONC 34 % (32-36); MEAN CORPUSCULAR VOLUME 94 fL (79.0-98.0); MONOCYTES # (AUTO) 0.8 K/uL (0.0-1.0); MONOCYTES % (AUTO) 8.4 % (1.7-9.3); NEUTROPHILS # (AUTO) 6.1 K/uL (1.8-7.7); NEUTROPHILS % (AUTO) 67.5 % (40.0-70.0); PLATELET COUNT (AUTO) 207 K/uL (130-430); RED BLOOD CELL COUNT(AUTO) 3.09 MIL/uL (4.2-6.2); RED CELL DISTRIBUTION WIDTH 15.1 % (9.0-15.0); WHITE BLOOD COUNT (AUTO) 9.1 K/uL (4.8-10.8)
[2018-10-24 06:09] LABS: INR 0.9 (0.8-1.2); PROTHROMBIN TIME 9.5 SECS (9.5-12.5)
[2018-10-24 06:35] LABS: ANION GAP 8 (5-15); CALCIUM 8.6 mg/dL (8.4-11.0); CHLORIDE 104 mmol/L (98-107); CREATININE 0.57 mg/dL (0.55-1.30); GLUCOSE 112 mg/dL (70-99); POTASSIUM 3.2 mmol/L (3.5-5.1); SODIUM SERUM 137 mmol/L (136-145); UREA NITROGEN, BLOOD 7 mg/dL (8-21)
[2018-10-24] MEDS: PANTOPRAZOLE SODIUM 40 MG/VIAL (PROTONIX) IVP SCH ×2 (08:23→21:07)
[2018-10-24] MEDS: CARBIDOPA/LEVODOPA 25/100 MG TABLET PO SCH ×3 (08:24→21:08)
[2018-10-24] MEDS: ALPRAZolam 0.25 MG TABLET PO PRN ×2 (08:24→20:07)
[2018-10-24] MEDS: ONDANSETRON HCL 4 MG/2 ML VIAL IVP PRN ×2 (08:24→14:59)
[2018-10-24 08:45] VITALS: BP_SYST 139
[2018-10-24] MEDS: FUROSEMIDE 20 MG TABLET PO SCH (09:00)
[2018-10-24] MEDS: LISINOPRIL 5 MG TABLET PO SCH (09:00)
[2018-10-24] MEDS: METHOCARBAMOL 500 MG TABLET PO SCH ×3 (09:00→21:08)
[2018-10-24 10:38] LABS: HEMATOCRIT 27.9 % (36-48); HEMOGLOBIN 9.2 g/dL (12.0-16.0)
[2018-10-24] MEDS: MEPERIDINE HCL/PF 100 MG/ML AMP ONE ×4 (11:20→12:52)
[2018-10-24] MEDS: MIDAZOLAM HCL 5 MG/5 ML VIAL ONE ×8 (11:20→13:14)
[2018-10-24] MEDS ORDERED: SIMETHICONE 40 MG/0.6 ML ML ONE (11:20)
[2018-10-24] MEDS ORDERED: POTASSIUM CHLORIDE 20 MEQ TAB.PRT.SR PO ONE (12:30)
[2018-10-24 12:48] VITALS: BP_SYST 136
[2018-10-24] MEDS ORDERED: SUCRALFATE 1 GM/10 ML UDC GT ONE (14:15)
[2018-10-24] MEDS: FLUoxetine HCL 20 MG CAPSULE (PROzac) PO SCH (14:57)
[2018-10-24 16:40] VITALS: BP_SYST 147
[2018-10-24] MEDS: SUCRALFATE 1 GM/10 ML UDC GT SCH (16:46)
[2018-10-24 16:49] LABS: HEMATOCRIT 28.8 % (36-48); HEMOGLOBIN 9.6 g/dL (12.0-16.0)
[2018-10-24] MEDS: traMADol HCL HCL 50 MG TABLET (ULTRAM) PO PRN (17:48)
[2018-10-24 20:00] VITALS: BP_SYST 148
[2018-10-24] MEDS: MIRTAZAPINE 15 MG TABLET PO SCH (21:07)
[2018-10-24 23:12] LABS: HEMATOCRIT 26.1 % (36-48); HEMOGLOBIN 8.7 g/dL (12.0-16.0)
[2018-10-25] MEDS: ONDANSETRON HCL 4 MG/2 ML VIAL IVP PRN (00:17)
[2018-10-25] MEDS: HYDROmorphone 1 MG INJ. 1 MG/ML AMPUL IVP PRN (00:17)
[2018-10-25 01:15] VITALS: BP_SYST 155
[2018-10-25] MEDS: ALPRAZolam 0.25 MG TABLET PO PRN (03:50)
[2018-10-25] MEDS: NACL 0.9% 1,000 ML IV SCH (06:31)
[2018-10-25] MEDS: traMADol HCL HCL 50 MG TABLET (ULTRAM) PO PRN (06:32)
[2018-10-25] MEDS: SUCRALFATE 1 GM/10 ML UDC GT SCH (06:32)
[2018-10-25 07:25] LABS: HEMOGLOBIN 9.2 g/dL (12.0-16.0)
[2018-10-25 07:55] VITALS: BP_SYST 147
[2018-10-25] MEDS: FLUoxetine HCL 20 MG CAPSULE (PROzac) PO SCH (09:17)
[2018-10-25] MEDS: LISINOPRIL 5 MG TABLET PO SCH (09:18)
[2018-10-25] MEDS: FUROSEMIDE 20 MG TABLET PO SCH (09:18)
[2018-10-25] MEDS: METHOCARBAMOL 500 MG TABLET PO SCH (09:19)
[2018-10-25] MEDS: CARBIDOPA/LEVODOPA 25/100 MG TABLET PO SCH (09:19)
[2018-10-25] MEDS: PANTOPRAZOLE SODIUM 40 MG/VIAL (PROTONIX) IVP SCH (09:19)
[2018-10-25] MEDS ORDERED: PRO40 PO (09:32)
[2018-10-25 09:47] VITALS: BP_SYST 147
== END 2018-10-25 11:52 | disposition home or self-care (01) | DRG 378 ==
LOC: SED 23:05 → STU 10-23 01:18 → SMU 10-23 15:59
PROVIDERS: ADMIT Internal Medicine Hospice and Palliative Medicine; ATTEND Internal Medicine Hospice and Palliative Medicine
PROC: 30233N1 Transfusion of Nonautologous Red Blood Cells into Peripheral Vein, Percutaneous Approach (ICD-10-PCS; principal; 2018-10-23)
PROC: 0DBH8ZZ Excision of Cecum, Via Natural or Artificial Opening Endoscopic (ICD-10-PCS; 2018-10-24)
PROC: 0DB68ZX Excision of Stomach, Via Natural or Artificial Opening Endoscopic, Diagnostic (ICD-10-PCS; 2018-10-24 13:30)
DX: K28.0 Acute gastrojejunal ulcer with hemorrhage (principal); E44.1 Mild protein-calorie malnutrition; D62 Acute posthemorrhagic anemia; F10.20 Alcohol dependence, uncomplicated; I10 Essential (primary) hypertension; G20 Parkinson's disease; K29.70 Gastritis, unspecified, without bleeding; K57.30 Diverticulosis of large intestine without perforation or abscess without bleeding; M19.90 Unspecified osteoarthritis, unspecified site; T39.395A Adverse effect of other nonsteroidal anti-inflammatory drugs [NSAID], initial encounter; D12.0 Benign neoplasm of cecum; I48.2 Chronic atrial fibrillation; F41.9 Anxiety disorder, unspecified; F32.9 Major depressive disorder, single episode, unspecified; K64.8 Other hemorrhoids; K59.09 Other constipation; E86.0 Dehydration; W18.39XA Other fall on same level, initial encounter; Z87.11 Personal history of peptic ulcer disease; Z90.710 Acquired absence of both cervix and uterus; Z95.810 Presence of automatic (implantable) cardiac defibrillator; Z98.84 Bariatric surgery status; Y92.89 Other specified places as the place of occurrence of the external cause; Z98.49 Cataract extraction status, unspecified eye; Z88.0 Allergy status to penicillin; Z88.5 Allergy status to narcotic agent; Z88.6 Allergy status to analgesic agent; Z79.899 Other long term (current) drug therapy; Z87.81 Personal history of (healed) traumatic fracture; Y93.89 Activity, other specified; Y99.8 Other external cause status
CPT/HCPCS: 36415; 43239; 45380; 70450-TC; 71045; 71100; 80048; 80053; 81000-TC; 82272; 83605; 84484; 85018-TC; 85025; 85610-TC; 85730-TC; 86886; 86900; 86901; 86920; 87040-TC; 87081; 87086; 87186-TC; 88305; 93005; 93306; 96360; 99285; C9113; J1170; J2175; J2250; J2405; J2765; J7030; P9021

== ENCOUNTER 2018-10-27 09:45 | Emergency (ER) | payer OTHER ==
[~2018-10-27] VITALS: Ht 157.5 cm; Wt 55.3 kg
[~2018-10-27 09:45] MED LIST changes: -METH750T3 PO; +PRO40 PO
[2018-10-27 09:50] VITALS: BP_SYST 152
[2018-10-27 11:26] LABS: BASOPHILS # (AUTO) 0.1 K/uL (0.0-0.2); BASOPHILS % (AUTO) 1.5 % (0.0-2.0); EOSINOPHILS # (AUTO) 0.3 K/uL (0.0-0.4); EOSINOPHILS % (AUTO) 4.7 % (0.0-4.0); HEMATOCRIT 31.6 % (36-48); HEMOGLOBIN 10.5 g/dL (12.0-16.0); LYMPHOCYTES # (AUTO) 1.7 K/uL (1.0-5.5); MEAN CORPUSCULAR HEMOGLOBIN 32 pg (27-31); MEAN CORPUSCULAR HGB CONC 33 % (32-36); MEAN CORPUSCULAR VOLUME 98 fL (79.0-98.0); MONOCYTES # (AUTO) 0.8 K/uL (0.0-1.0); MONOCYTES % (AUTO) 12.9 % (1.7-9.3); NEUTROPHILS # (AUTO) 3.5 K/uL (1.8-7.7); NEUTROPHILS % (AUTO) 54.9 % (40.0-70.0); PLATELET COUNT (AUTO) 276 K/uL (130-430); RED BLOOD CELL COUNT(AUTO) 3.25 MIL/uL (4.2-6.2); RED CELL DISTRIBUTION WIDTH 15.4 % (9.0-15.0); WHITE BLOOD COUNT (AUTO) 6.4 K/uL (4.8-10.8)
[2018-10-27 11:33] LABS: ALANINE AMINOTRANSFERASE 41 U/L (12-78); ALBUMIN 3.5 g/dL (3.4-4.8); ANION GAP 12 (5-15); ASPARTATE AMINOTRANSFERASE 22 U/L (10-37); CALCIUM 9.1 mg/dL (8.4-11.0); CHLORIDE 102 mmol/L (98-107); CREATININE 0.57 mg/dL (0.55-1.30); GLUCOSE 97 mg/dL (70-99); LIPASE 273 U/L (73-393); SODIUM SERUM 139 mmol/L (136-145); TOTAL BILIRUBIN 0.5 mg/dL (0.0-1.0); UREA NITROGEN, BLOOD 8 mg/dL (8-21)
[2018-10-27 11:36] LABS: POTASSIUM 2.6 mmol/L (3.5-5.1)
[2018-10-27 11:45] LABS: PROTHROMBIN TIME 10.3 SECS (9.5-12.5)
[2018-10-27] MEDS ORDERED: POTASSIUM CHLORIDE 20 MEQ/PKT PACKET PO ONE (11:45)
[2018-10-27 12:10] VITALS: BP_SYST 160
[2018-10-27] MEDS ORDERED: NITROGLYCERIN 1 INCH (GM) OINT. TP ONE (12:15)
[2018-10-27] MEDS ORDERED: ASPIRIN 81 MG TAB.CHEW PO ONE (12:15)
[2018-10-27 12:23] LABS: BILIRUBIN,URINE NEGATIVE (NEGATIVE); BLOOD, URINE NEGATIVE (NEGATIVE); CLARITY/URINE CLEAR (CLEAR); COLOR,URINE YELLOW (YELLOW); GLUCOSE,URINE NEGATIVE (NEGATIVE); KETONES,URINE 2+ (NEGATIVE); LEUKOCYTE ESTERASE ,URINE NEGATIVE (NEGATIVE); NITRITE, URINE POSITIVE (NEGATIVE); PH,URINE 5.5 (5.0-8.0); PROTEIN URINE NEGATIVE (NEGATIVE)
[2018-10-27 12:46] LABS: BACTERIA,URINE MANY /HPF (None Seen); RBC,URINE 0-3 /HPF (0-3); WBC,URINE 0-3 /HPF (0-3)
== END 2018-10-27 12:10 | disposition short-term general hospital (02) ==
LOC: SED 09:45
DX: I21.9 Acute myocardial infarction, unspecified (principal); I48.91 Unspecified atrial fibrillation; I10 Essential (primary) hypertension; F41.9 Anxiety disorder, unspecified; Z90.710 Acquired absence of both cervix and uterus; Z98.84 Bariatric surgery status; Z88.0 Allergy status to penicillin; Z88.5 Allergy status to narcotic agent; Z88.6 Allergy status to analgesic agent; Z79.899 Other long term (current) drug therapy
CPT/HCPCS: 36415; 71045; 74018; 80053; 81000-TC; 83690-TC; 84484; 85025; 85610-TC; 93005; 99291

== ENCOUNTER 2019-06-26 14:46 | Emergency (ER) | payer OTHER ==
[~2019-06-26] VITALS: Ht 154.9 cm; Wt 47.6 kg
[~2019-06-26 14:46] MED LIST changes: -MELA3TAB PO; +MELA3TAB64 PO
[2019-06-26 15:05] VITALS: BP_SYST 124
--- NOTE | 2019-06-26 15:09 | NUR ---
Placed in room 2 . Placed on inbound sales consultant, blood pressure machine and pulse oximeter. To gown for exam. Side rails up.
--- NOTE | 2019-06-26 15:15 | NUR ---
Pt came to ER after falling this morning. Small cut present on back of head, pt AO4, no s/s of distresss, no c/o pain at this time
--- NOTE | 2019-06-26 15:25 | NUR ---
ER at bedside examining patient.
--- NOTE | 2019-06-26 15:40 | NUR ---
Urine collected and sent to lab
[2019-06-26 15:48] LABS: BILIRUBIN,URINE NEGATIVE (NEGATIVE); BLOOD, URINE NEGATIVE (NEGATIVE); CLARITY/URINE CLEAR (CLEAR); COLOR,URINE YELLOW (YELLOW); GLUCOSE,URINE NEGATIVE (NEGATIVE); KETONES,URINE NEGATIVE (NEGATIVE); LEUKOCYTE ESTERASE ,URINE 1+ (NEGATIVE); NITRITE, URINE POSITIVE (NEGATIVE); PROTEIN URINE NEGATIVE (NEGATIVE); UROBILINOGEN,URINE 0.2 (0.2-1.0)
--- NOTE | 2019-06-26 16:00 | NUR ---
# 22 gauge angiocath placed to left hand. Use of asceptic technique. Opsite placed over site. Blood return noted. Blood for lab drawn from site. Flushed with 10 cc of normal saline. No evidence of infiltration noted. Patient tolerated well.
[2019-06-26 16:07] LABS: BACTERIA,URINE MANY /HPF (None Seen); RBC,URINE 0-3 /HPF (0-3)
[2019-06-26 16:10] LABS: BASOPHILS # (AUTO) 0.1 K/uL (0.0-0.2); EOSINOPHILS # (AUTO) 0.2 K/uL (0.0-0.4); MEAN CORPUSCULAR HGB CONC 33 % (32-36); MONOCYTES # (AUTO) 0.9 K/uL (0.0-1.0)
[2019-06-26 16:16] LABS: BASOPHILS % (AUTO) 1.5 % (0.0-2.0); EOSINOPHILS % (AUTO) 2.6 % (0.0-4.0); HEMATOCRIT 34.6 % (36-48); HEMOGLOBIN 11.3 g/dL (12.0-16.0); LYMPHOCYTES # (AUTO) 1.6 K/uL (1.0-5.5); LYMPHOCYTES % (AUTO) 19.4 % (20.5-51.5); MEAN CORPUSCULAR HEMOGLOBIN 32 pg (27-31); MEAN CORPUSCULAR VOLUME 97 fL (79.0-98.0); MONOCYTES % (AUTO) 10.7 % (1.7-9.3); NEUTROPHILS # (AUTO) 5.3 K/uL (1.8-7.7); NEUTROPHILS % (AUTO) 65.8 % (40.0-70.0); RED BLOOD CELL COUNT(AUTO) 3.57 MIL/uL (4.2-6.2); RED CELL DISTRIBUTION WIDTH 14.6 % (9.0-15.0)
[2019-06-26 16:20] LABS: CALCIUM 8.7 mg/dL (8.4-11.0); CHLORIDE 105 mmol/L (98-107); CREATININE 0.57 mg/dL (0.55-1.30); GLUCOSE 81 mg/dL (70-99); POTASSIUM 4.1 mmol/L (3.5-5.1); SODIUM SERUM 139 mmol/L (136-145); UREA NITROGEN, BLOOD 18 mg/dL (8-21)
[2019-06-26 16:25] LABS: PLATELET COUNT (AUTO) 240 K/uL (130-430)
--- NOTE | 2019-06-26 16:30 | NUR ---
Note undone in ED - 06/26/19 at 1722 by JOSEY Patient to be transferred to [place]. Is being transferred due to higher level of care. Receiving facility has accepting physician and available space. ER physician has signed transfer form. Patient or responsible constitution party has agreed to transfer and signed form. Patient belongings inventoried and will be sent with patient. Copy of nursing notes, lab reports, EKG, Physicians Orders and X-rays to be sent with patient. [facility] ambulance service has been called for transfer. ETA is 30min.
[2019-06-26 16:31] LABS: ANION GAP 9 (5-15)
--- NOTE | 2019-06-26 16:45 | NUR ---
pt transferred to [facility] for a CT of the head and c-spine. Transfer acknowledgment signed and past consents to the transfer. Pt is aware that she will be returning to the ED after the CT scans are completed. Report given to [facility] paramedics. IV is on the 22g left hand patent and infusing well.
--- NOTE | 2019-06-26 18:24 | NUR ---
Pt returned from [place] on stable condition after CT.
--- NOTE | 2019-06-26 18:28 | NUR ---
pt returned from [facility]. Waiting for Ct scan results
[2019-06-26] MEDS ORDERED: CEPHALEXIN 500 MG CAPSULE PO ONE (18:45)
--- NOTE | 2019-06-26 19:19 | NUR ---
report given to Bharath upton. pt is in stable condition. currently waiting for Ct head results
--- NOTE | 2019-06-26 19:45 | NUR ---
RECEIVED ALERT,ORIENTED. AFEBRILE, NOT IN ACUTE DISTRESS. DENIES ANY PAIN OR DISCOMFORT. AWAITING CT RESULTS. VS STABLE, WILL CONTINUE TO MONITOR.
--- NOTE | 2019-06-26 19:50 | NUR ---
BACK AT BEDSIDE TO RE-EVALUATE AND DISCUSS PLAN OF CARE WITH PATIENT. ONLY CT OF C-SPINE DONE, NOT THE CT HEAD. PT. JUST WOULD LIKE TO LEAVE AGAINST MEDICAL ADVICE.
--- NOTE | 2019-06-26 20:00 | NUR ---
AMA FORM SIGNED BY PATIENT.
--- NOTE | 2019-06-26 20:27 | NUR ---
DISCHARGED AGAINST MEDICAL ADVICE STABLE AND IMPROVED. PRESCRIPTION,VERBAL AND WRITTEN AFTERCARE INSTRUCTIONS GIVEN. VERBALIZED UNDERSTANDING. LEFT UNIT WITH [facility] WITH STABLE GAIT.
[2019-06-26 20:53] VITALS: BP_SYST 125
== END 2019-06-26 20:27 | disposition left against medical advice (07) ==
LOC: SED 14:46
DX: S00.01XA Abrasion of scalp, initial encounter (principal); R55 Syncope and collapse; N39.0 Urinary tract infection, site not specified; I10 Essential (primary) hypertension; F41.9 Anxiety disorder, unspecified; Z88.0 Allergy status to penicillin; Z88.5 Allergy status to narcotic agent; Z88.6 Allergy status to analgesic agent; Z79.899 Other long term (current) drug therapy; W18.39XA Other fall on same level, initial encounter; Y93.01 Activity, walking, marching and hiking; Y92.89 Other specified places as the place of occurrence of the external cause; Y99.8 Other external cause status
CPT/HCPCS: 36415; 71045; 72125-TC; 80048; 81000-TC; 83880; 84484; 85025; 87086; 87186-TC; 93005; 99284

== ENCOUNTER 2020-04-12 13:07 | Emergency (ER) | payer OTHER ==
[~2020-04-12] VITALS: Ht 160 cm; Wt 64.0 kg
[~2020-04-12 13:07] MED LIST changes: +MELA3TAB41 PO; -MELA3TAB64 PO; +OMEP40CA13 PO; -OMEP40CA33 PO
--- NOTE | 2020-04-12 13:30 | NUR ---
Patient to ER bed 4 to gown for evaluation. Side rails up. Report given to Pablo VARGAS.
[2020-04-12 13:31] VITALS: BP_SYST 110
[2020-04-12] MEDS ORDERED: KETOROLAC TROMETHAMINE 60 MG/2 ML VIAL IM ONE (13:45)
--- NOTE | 2020-04-12 13:45 | NUR ---
ER at bedside examining patient.
--- NOTE | 2020-04-12 14:00 | NUR ---
Pt came to ER for L wrist pain after trip and fall. Pt has deformity to L wrist rates pain 7/10, resting in [facility], no distress, awaiting MD.
[2020-04-12 15:11] VITALS: BP_SYST 110
--- NOTE | 2020-04-12 15:13 | NUR ---
Patient given written and verbal discharge instructions and verbalizes understanding. ER MD discussed with patient the results and treatment provided. Patient in stable condition. ID arm band removed. Rx of Zofran and [place] given. Patient educated on pain management and to follow up with PMD. Pain Scale 3/10. Opportunity for questions provided and answered. Medication side effect fact sheet provided.
== END 2020-04-12 15:11 | disposition home or self-care (01) ==
LOC: SED 13:07
DX: S52.592A Other fractures of lower end of left radius, initial encounter for closed fracture (principal); I10 Essential (primary) hypertension; I48.91 Unspecified atrial fibrillation; F41.9 Anxiety disorder, unspecified; Z90.710 Acquired absence of both cervix and uterus; Z79.899 Other long term (current) drug therapy; Z88.6 Allergy status to analgesic agent; Z88.0 Allergy status to penicillin; W18.39XA Other fall on same level, initial encounter; Y93.89 Activity, other specified; Y92.89 Other specified places as the place of occurrence of the external cause; Y99.8 Other external cause status
CPT/HCPCS: 29125; 73110; 96372; 99283; J1885

== ENCOUNTER 2020-09-07 13:20 | Emergency (ER) | payer OTHER ==
[~2020-09-07] VITALS: Ht 160 cm; Wt 59.0 kg
[2020-09-07 13:32] VITALS: BP_SYST 153
[2020-09-07 13:59] LABS: BASOPHILS % (AUTO) 0.1 % (0.0-2.0); EOSINOPHILS # (AUTO) 0.2 K/uL (0.0-0.4); EOSINOPHILS % (AUTO) 2.7 % (0.0-4.0); HEMATOCRIT 29.5 % (36-48); HEMOGLOBIN 9.7 g/dL (12.0-16.0); LYMPHOCYTES # (AUTO) 1.3 K/uL (1.0-5.5); LYMPHOCYTES % (AUTO) 20.9 % (20.5-51.5); MEAN CORPUSCULAR HEMOGLOBIN 31 pg (27-31); MEAN CORPUSCULAR HGB CONC 33 % (32-36); MEAN CORPUSCULAR VOLUME 96 fL (79.0-98.0); MONOCYTES # (AUTO) 0.8 K/uL (0.0-1.0); NEUTROPHILS # (AUTO) 4.1 K/uL (1.8-7.7); NEUTROPHILS % (AUTO) 64.3 % (40.0-70.0); PLATELET COUNT (AUTO) 308 K/uL (130-430); RED BLOOD CELL COUNT(AUTO) 3.08 MIL/uL (4.2-6.2); WHITE BLOOD COUNT (AUTO) 6.3 K/uL (4.8-10.8)
[2020-09-07 14:13] LABS: ANION GAP 9 (5-15); CALCIUM 8.8 mg/dL (8.4-11.0); CHLORIDE 105 mmol/L (98-107); CREATININE 0.96 mg/dL (0.55-1.30); GLUCOSE 79 mg/dL (70-99); POTASSIUM 4.2 mmol/L (3.5-5.1); SODIUM SERUM 139 mmol/L (136-145); UREA NITROGEN, BLOOD 18 mg/dL (8-21)
[2020-09-07 14:20] LABS: ALANINE AMINOTRANSFERASE 13 U/L (12-78); ALBUMIN 3.5 g/dL (3.4-4.8); ASPARTATE AMINOTRANSFERASE 31 U/L (10-37)
[2020-09-07 14:23] LABS: PROTHROMBIN TIME 10.4 SECS (9.5-12.5)
[2020-09-07 14:25] LABS: TOTAL BILIRUBIN < 0.1 mg/dL (0.0-1.0)
[2020-09-07] MEDS ORDERED: NACL 0.9% 1,000 ML IV ONE (14:30)
[2020-09-07] MEDS ORDERED: ONDANSETRON HCL 4 MG/2 ML VIAL IVP ONE (14:30)
[2020-09-07] MEDS ORDERED: MAG HYDROX/AL HYDROX/SIMETH 30 ML, DICYCLOMINE HCL 20 MG, LIDOCAINE VISCOUS 2% 15ML (PO... PO ONE ×3 (14:30)
[2020-09-07 14:57] LABS: BILIRUBIN,URINE NEGATIVE (NEGATIVE); BLOOD, URINE NEGATIVE (NEGATIVE); CLARITY/URINE CLEAR (CLEAR); COLOR,URINE YELLOW (YELLOW); GLUCOSE,URINE NEGATIVE (NEGATIVE); KETONES,URINE TRACE (NEGATIVE); LEUKOCYTE ESTERASE ,URINE NEGATIVE (NEGATIVE); NITRITE, URINE POSITIVE (NEGATIVE); PH,URINE 5.5 (5.0-8.0); PROTEIN URINE NEGATIVE (NEGATIVE); UROBILINOGEN,URINE 0.2 (0.2-1.0)
[2020-09-07 15:18] LABS: BACTERIA,URINE MODERATE /HPF (None Seen); MUCUS,URINE 1+ /LPF (None Seen)
[2020-09-07] MEDS ORDERED: CIPR500T5 PO (17:49)
[2020-09-07] MEDS ORDERED: LOM2.5 PO (17:50)
[2020-09-07 17:59] VITALS: BP_SYST 136
[2020-09-08] MEDS ORDERED: CARB1TAB8 PO (09:22)
[2020-09-08] MEDS ORDERED: PRIM50TA27 PO (09:22)
[2020-09-08] MEDS ORDERED: ACET-2634 PO (09:22)
== END 2020-09-07 17:59 | disposition home or self-care (01) ==
LOC: SED 13:20
DX: R19.7 Diarrhea, unspecified (principal); I10 Essential (primary) hypertension; I48.91 Unspecified atrial fibrillation; F41.9 Anxiety disorder, unspecified; Z88.6 Allergy status to analgesic agent; Z88.5 Allergy status to narcotic agent; Z88.0 Allergy status to penicillin; Z79.899 Other long term (current) drug therapy
CPT/HCPCS: 36415; 71045; 80053; 81000; 83605; 83690; 83880; 84484; 85025; 85610; 85730; 87040; 87086; 93005; 96374; 99285; J2001; J2405; J7030

== ENCOUNTER 2020-09-08 07:42 | Inpatient (IN) | payer OTHER, SELFPAY ==
[~2020-09-08] VITALS: Ht 160 cm; Wt 59.0 kg
[~2020-09-08 07:42] MED LIST changes: +CIPR500T5 PO; +LOM2.5 PO
[2020-09-08 07:52] VITALS: BP_SYST 167
[2020-09-08 08:11] LABS: BASOPHILS % (AUTO) 0.4 % (0.0-2.0); EOSINOPHILS % (AUTO) 0.3 % (0.0-4.0); LYMPHOCYTES # (AUTO) 0.6 K/uL (1.0-5.5); LYMPHOCYTES % (AUTO) 13.2 % (20.5-51.5); MEAN CORPUSCULAR HEMOGLOBIN 31 pg (27-31); MEAN CORPUSCULAR HGB CONC 32 % (32-36); MEAN CORPUSCULAR VOLUME 97 fL (79.0-98.0); MONOCYTES # (AUTO) 0.3 K/uL (0.0-1.0); MONOCYTES % (AUTO) 5.6 % (1.7-9.3); NEUTROPHILS # (AUTO) 3.9 K/uL (1.8-7.7); NEUTROPHILS % (AUTO) 80.5 % (40.0-70.0); PLATELET COUNT (AUTO) 297 K/uL (130-430); RED BLOOD CELL COUNT(AUTO) 2.88 MIL/uL (4.2-6.2); WHITE BLOOD COUNT (AUTO) 4.9 K/uL (4.8-10.8)
[2020-09-08 08:33] LABS: ANION GAP 12 (5-15); CALCIUM 8.8 mg/dL (8.4-11.0); CHLORIDE 106 mmol/L (98-107); GLUCOSE 120 mg/dL (70-99); SODIUM SERUM 142 mmol/L (136-145); UREA NITROGEN, BLOOD 13 mg/dL (8-21)
[2020-09-08 08:41] LABS: ALANINE AMINOTRANSFERASE 20 U/L (12-78); ALBUMIN 3.4 g/dL (3.4-4.8); ASPARTATE AMINOTRANSFERASE 25 U/L (10-37); LIPASE 155 U/L (73-393); TOTAL BILIRUBIN 0.2 mg/dL (0.0-1.0)
[2020-09-08] MEDS ORDERED: ALBUTEROL SULFATE 0.083% 2.5 MG/3 ML VIAL.NEB INH ONE (09:00)
[2020-09-08] MEDS ORDERED: predniSONE 20 MG TABLET PO ONE (09:00)
[2020-09-08] MEDS ORDERED: PRIM50TA27 PO (09:22)
[2020-09-08] MEDS ORDERED: CARB1TAB8 PO (09:22)
[2020-09-08] MEDS ORDERED: ACET-2634 PO (09:22)
[2020-09-08] MEDS ORDERED: ONDANSETRON HCL 4 MG/2 ML VIAL IVP ONE (09:30)
[2020-09-08] MEDS ORDERED: CIPROFLOXACIN LACT 400 MG/D5W 200 ML IV SCH (09:45)
[2020-09-08] MEDS ORDERED: CIPROFLOXACIN LACT 400 MG/D5W 200 ML IV ONE (09:45)
[2020-09-08] MEDS ORDERED: METOCLOPRAMIDE HCL 10 MG/2 ML VIAL IVP PRN (10:00)
[2020-09-08] MEDS ORDERED: IPRATROPIUM BROM 0.5 MG/2.5 ML VIAL.NEB (ATROVENT) INH PRN (11:15)
[2020-09-08] MEDS ORDERED: ALBUTEROL SULFATE 0.083% 2.5 MG/3 ML VIAL.NEB INH PRN (11:15)
[2020-09-08 12:03] VITALS: BP_SYST 134
[2020-09-08 14:22] VITALS: BP_SYST 134
[2020-09-08] MEDS: methylPREDNISolone SOD SUCC/PF 62.5 MG/ML VIAL IVP SCH ×2 (15:12→21:23)
[2020-09-08] MEDS: LEVOFLOXACIN IN DEXTROSE 5 % 100 ML IV SCH (15:12)
[2020-09-08] MEDS: PRIMIDONE 50 MG TABLET PO SCH (15:13)
[2020-09-08 15:22] VITALS: BP_SYST 147
[2020-09-08] MEDS: ALPRAZolam 0.25 MG TABLET PO PRN (16:16)
[2020-09-08] MEDS: ONDANSETRON HCL 4 MG/2 ML VIAL IVP PRN (16:45)
[2020-09-08] MEDS: ALBUTEROL SULFATE 0.083% 2.5 MG/3 ML VIAL.NEB INH SCH (19:55)
[2020-09-08] MEDS: IPRATROPIUM BROM 0.5 MG/2.5 ML VIAL.NEB (ATROVENT) INH SCH (19:55)
[2020-09-08 20:00] VITALS: BP_SYST 135
[2020-09-08] MEDS: MIRTAZAPINE 15 MG TABLET PO SCH (21:23)
[2020-09-09 00:39] VITALS: BP_SYST 130
[2020-09-09] MEDS: ALBUTEROL SULFATE 0.083% 2.5 MG/3 ML VIAL.NEB INH SCH ×2 (01:30→07:16)
[2020-09-09] MEDS: IPRATROPIUM BROM 0.5 MG/2.5 ML VIAL.NEB (ATROVENT) INH SCH ×4 (01:30→20:18)
[2020-09-09] MEDS: methylPREDNISolone SOD SUCC/PF 62.5 MG/ML VIAL IVP SCH ×3 (05:18→21:16)
[2020-09-09] MEDS: ALPRAZolam 0.25 MG TABLET PO PRN (07:58)
[2020-09-09] MEDS: FUROSEMIDE 20 MG TABLET PO SCH (07:58)
[2020-09-09] MEDS: POTASSIUM CHLORIDE 10 MEQ TAB.PRT.SR PO SCH (07:58)
[2020-09-09] MEDS: ONDANSETRON HCL 4 MG/2 ML VIAL IVP PRN (07:59)
[2020-09-09 08:47] VITALS: BP_SYST 142
[2020-09-09] MEDS ORDERED: MELATONIN 3 MG TABLET PO SCH ×3 (09:00→21:00)
[2020-09-09] MEDS ORDERED: SERTRALINE HCL 50 MG TABLET PO ONE (11:00)
[2020-09-09] MEDS ORDERED: CARBIDOPA/LEVODOPA 10/100 MG TABLET PO ONE (11:15)
[2020-09-09 12:33] VITALS: BP_SYST 126
[2020-09-09] MEDS: LEVOFLOXACIN IN DEXTROSE 5 % 100 ML IV SCH (12:49)
[2020-09-09] MEDS: LevALBUTEROL HCL 1.25 MG/0.5 ML *CONC.* VIAL.NEB (XOPENEX CONC.) INH SCH ×2 (13:00→20:18)
[2020-09-09 15:21] VITALS: BP_SYST 122
[2020-09-09 19:35] VITALS: BP_SYST 132
[2020-09-09] MEDS ORDERED: ENOXAPARIN SODIUM 30 MG/0.3 ML SYRINGE SUBCUT SCH (21:00)
[2020-09-09] MEDS: MIRTAZAPINE 15 MG TABLET PO SCH (21:15)
[2020-09-09] MEDS: PRIMIDONE 50 MG TABLET PO SCH (21:16)
[2020-09-10 00:36] VITALS: BP_SYST 129
[2020-09-10] MEDS: ALPRAZolam 0.25 MG TABLET PO PRN ×2 (01:53→17:06)
[2020-09-10] MEDS: methylPREDNISolone SOD SUCC/PF 62.5 MG/ML VIAL IVP SCH ×2 (05:05→12:53)
[2020-09-10] MEDS: IPRATROPIUM BROM 0.5 MG/2.5 ML VIAL.NEB (ATROVENT) INH SCH ×3 (07:00→20:07)
[2020-09-10] MEDS: LevALBUTEROL HCL 1.25 MG/0.5 ML *CONC.* VIAL.NEB (XOPENEX CONC.) INH SCH ×3 (07:00→20:07)
[2020-09-10 08:00] VITALS: BP_SYST 138
[2020-09-10] MEDS ORDERED: SERTRALINE HCL 50 MG TABLET PO SCH (09:00)
[2020-09-10] MEDS ORDERED: CARBIDOPA/LEVODOPA 10/100 MG TABLET PO SCH (09:00)
[2020-09-10] MEDS: POTASSIUM CHLORIDE 10 MEQ TAB.PRT.SR PO SCH (09:29)
[2020-09-10] MEDS: FUROSEMIDE 20 MG TABLET PO SCH (09:30)
[2020-09-10 12:00] VITALS: BP_SYST 145
[2020-09-10] MEDS ORDERED: LORazepam 2 MG/ML VIAL IVP ONE (12:45)
[2020-09-10] MEDS: CARBIDOPA/LEVODOPA 25/100 MG TABLET PO SCH ×2 (12:53→17:05)
[2020-09-10] MEDS: LEVOFLOXACIN IN DEXTROSE 5 % 100 ML IV SCH (13:09)
[2020-09-10] MEDS ORDERED: LEVOFLOXACIN IN DEXTROSE 5 % 100 ML IV SCH (16:00)
[2020-09-10 16:36] VITALS: BP_SYST 137
[2020-09-10 18:11] VITALS: BP_SYST 107
[2020-09-10 19:51] VITALS: BP_SYST 130
== END 2020-09-10 20:35 | disposition home or self-care (01) | DRG 190 ==
LOC: SED 07:42 → STU 10:00 → SMU 09-09 19:50
PROVIDERS: ADMIT Internal Medicine Hospice and Palliative Medicine; ATTEND Internal Medicine Hospice and Palliative Medicine
DX: J44.1 Chronic obstructive pulmonary disease with (acute) exacerbation (principal); J96.01 Acute respiratory failure with hypoxia; J45.901 Unspecified asthma with (acute) exacerbation; I42.9 Cardiomyopathy, unspecified; N39.0 Urinary tract infection, site not specified; G20 Parkinson's disease; I10 Essential (primary) hypertension; Z20.822 Contact with and (suspected) exposure to COVID-19; F41.9 Anxiety disorder, unspecified; I25.10 Atherosclerotic heart disease of native coronary artery without angina pectoris; I48.0 Paroxysmal atrial fibrillation; Z95.0 Presence of cardiac pacemaker; Z98.84 Bariatric surgery status; Z88.6 Allergy status to analgesic agent; Z88.0 Allergy status to penicillin; Z79.01 Long term (current) use of anticoagulants; Z79.899 Other long term (current) drug therapy; I25.2 Old myocardial infarction; Z87.81 Personal history of (healed) traumatic fracture
CPT/HCPCS: 36415; 71045; 80053; 82962; 83690-TC; 83880; 84484; 85025; 85379; 93005; 94640; 94760; 96365; 96366; 96375; 97116-GP; 97530-GP; G0378; J0744; J1650; J1956; J2060; J2405; J2930; J7512; J7612; J7613

== ENCOUNTER 2020-09-21 13:03 | Emergency (ER) | payer OTHER, SELFPAY ==
[~2020-09-21] VITALS: Ht 157.5 cm; Wt 54.4 kg
[2020-09-21 13:03] VITALS: BP_SYST 138
[~2020-09-21 13:03] MED LIST changes: +ACET-2634 PO; -BENZ-16 PO; +CARB1TAB8 PO; -CIPR500T5 PO; -LISI-209 PO; -LOM2.5 PO; -MIRT15TA7 PO; -OMEP40CA13 PO; +PRIM50TA27 PO; -PRO20 PO; -PRO40 PO; -RIZA10TA22; -TRAM50TA92 PO; -[UNRECOGNIZED DRUG - CODE] PO
[2020-09-21] MEDS ORDERED: ONDANSETRON 4 MG ODT TAB PO ONE (13:30)
[2020-09-21 13:35] LABS: BASOPHILS # (AUTO) 0.1 K/uL (0.0-0.2); BASOPHILS % (AUTO) 0.6 % (0.0-2.0); EOSINOPHILS % (AUTO) 0.4 % (0.0-4.0); HEMATOCRIT 28.1 % (36-48); HEMOGLOBIN 9.1 g/dL (12.0-16.0); LYMPHOCYTES # (AUTO) 0.6 K/uL (1.0-5.5); LYMPHOCYTES % (AUTO) 5.7 % (20.5-51.5); MEAN CORPUSCULAR HEMOGLOBIN 30 pg (27-31); MEAN CORPUSCULAR HGB CONC 33 % (32-36); MEAN CORPUSCULAR VOLUME 92 fL (79.0-98.0); MONOCYTES # (AUTO) 0.6 K/uL (0.0-1.0); MONOCYTES % (AUTO) 5.4 % (1.7-9.3); NEUTROPHILS # (AUTO) 9.4 K/uL (1.8-7.7); NEUTROPHILS % (AUTO) 87.9 % (40.0-70.0); PLATELET COUNT (AUTO) 250 K/uL (130-430); RED BLOOD CELL COUNT(AUTO) 3.06 MIL/uL (4.2-6.2); RED CELL DISTRIBUTION WIDTH 15.7 % (9.0-15.0); WHITE BLOOD COUNT (AUTO) 10.7 K/uL (4.8-10.8)
[2020-09-21 13:48] LABS: ANION GAP 7 (5-15); CALCIUM 8.7 mg/dL (8.4-11.0); CHLORIDE 107 mmol/L (98-107); CREATININE 0.66 mg/dL (0.55-1.30); GLUCOSE 124 mg/dL (70-99); POTASSIUM 3.5 mmol/L (3.5-5.1); SODIUM SERUM 142 mmol/L (136-145); UREA NITROGEN, BLOOD 8 mg/dL (8-21)
[2020-09-21 13:52] LABS: PROTHROMBIN TIME 10.3 SECS (9.5-12.5)
[2020-09-21 13:54] LABS: ALANINE AMINOTRANSFERASE 8 U/L (12-78); ALBUMIN 3.3 g/dL (3.4-4.8); AMYLASE 40 U/L (0-100); ASPARTATE AMINOTRANSFERASE 15 U/L (10-37); LACTATE DEHYDROGENASE 195 U/L (81-234); LIPASE 108 U/L (73-393); TOTAL BILIRUBIN 0.4 mg/dL (0.0-1.0)
[2020-09-21 13:56] LABS: C-REACTIVE PROTEIN QUANT 3.9 mg/dL (0-0.5)
[2020-09-21 13:57] LABS: ACETONE, SERUM NEGATIVE (NEGATIVE)
[2020-09-21] MEDS ORDERED: ONDA-8 TL (15:00)
[2020-09-21 15:46] LABS: BILIRUBIN,URINE NEGATIVE (NEGATIVE); BLOOD, URINE NEGATIVE (NEGATIVE); COLOR,URINE YELLOW (YELLOW); GLUCOSE,URINE NEGATIVE (NEGATIVE); KETONES,URINE 2+ (NEGATIVE); LEUKOCYTE ESTERASE ,URINE NEGATIVE (NEGATIVE); NITRITE, URINE NEGATIVE (NEGATIVE); PROTEIN URINE NEGATIVE (NEGATIVE); UROBILINOGEN,URINE 0.2 (0.2-1.0)
[2020-09-21 15:52] LABS: CLARITY/URINE SLIGHTLY HAZY (CLEAR)
[2020-09-21 16:16] LABS: BACTERIA,URINE MANY /HPF (None Seen); RBC,URINE 0-3 /HPF (0-3); WBC,URINE 0-3 /HPF (0-3)
[2020-09-21 16:17] LABS: MUCUS,URINE None Seen /LPF (None Seen)
[2020-09-21 16:18] LABS: URINE AMORPHOUS URATE 1+ /HPF (None Seen)
[2020-09-21 19:14] VITALS: BP_SYST 138
== END 2020-09-21 19:14 | disposition home or self-care (01) ==
LOC: SED 13:03
DX: R11.2 Nausea with vomiting, unspecified (principal); R19.7 Diarrhea, unspecified; I10 Essential (primary) hypertension; J44.9 Chronic obstructive pulmonary disease, unspecified; I48.91 Unspecified atrial fibrillation; Z88.5 Allergy status to narcotic agent; Z88.0 Allergy status to penicillin; Z88.6 Allergy status to analgesic agent; Z79.899 Other long term (current) drug therapy
CPT/HCPCS: 36415; 80053; 81000; 82009; 82150; 83605; 83615; 83690; 84484; 85025; 85610; 85730; 86140; 87086; 93005; 99284; Q0162